=== PATIENT | female | born 1965 | race Caucasian/White ===

== ENCOUNTER 2025-07-20 17:39 | Emergency (ER) | payer MEDICAID, OTHER ==
[~2025-07-20] VITALS: Ht 162.6 cm; Wt 121.6 kg
[2025-07-20 20:44] VITALS: BP 158/100; TEMP 98.1; O2SAT 96
== END 2025-07-20 20:45 | disposition left against medical advice (07) ==
LOC: ER 17:45
DX: R42 Dizziness and giddiness (principal); R11.10 Vomiting, unspecified; Z53.21 Procedure and treatment not carried out due to patient leaving prior to being seen by health care provider